=== PATIENT | male | born 1945 | race Caucasian/White ===

== ENCOUNTER 2018-04-27 09:32 | Outpatient (CLI) | payer MEDICARE, BC ==
--- NOTE | 2018-04-27 20:17 | ULT ---
RIGHT UPPER QUADRANT ULTRASOUND 04/27/18 Ultrasonography of the right upper quadrant was performed for evaluation of pain. The liver was 15.0 cm in oblique sagittal length which is upper normal. It is slightly echogenic, so I cannot completely exclude the possibility of fatty infiltration. Internally, there was no dilated d uct or mass. The visible portions of the pancreas appear normal. The gallbladder contain no signs of signs or wall thickening. The common bile duct was borderline in caliber at 6 mm. The right kidney ap pears normal and is 10.5 cm in length. IMPRESSION: No definite acute findings. See comments above. POS: HOME
== END 2018-04-27 09:33 | disposition home or self-care (01) ==
LOC: BURULT 09:32
PROVIDERS: ATTEND Family Medicine
DX: R10.11 Right upper quadrant pain (principal)
CPT/HCPCS: 76705

== ENCOUNTER 2019-02-17 12:36 | Outpatient (CLI) | payer MEDICARE, BC ==
--- NOTE | 2019-02-17 16:56 | RAD ---
CHEST TWO VIEWS: 02/17/19 Comparison is made with the prior study of 05/21/18. The heart remains normal in size. There is no lobar infiltrate or effusion. At most there may be some minor prominence of the lung markings in general, but the finding is equivocal at best. The mediasti num showed no acute change. The trachea is midline. IMPRESSION: No acute thoracic findings. If clinical concerns persist, a CT of the chest to show finer detail coul d be needed. POS: HOME
== END 2019-02-17 12:37 | disposition home or self-care (01) ==
LOC: BURRAD 12:36
PROVIDERS: ATTEND Nurse Practitioner Family
DX: J41.1 Mucopurulent chronic bronchitis (principal)
CPT/HCPCS: 71046

== ENCOUNTER 2019-12-11 12:17 | Outpatient (CLI) | payer MEDICARE, BC ==
--- NOTE | 2019-12-11 16:30 | RAD ---
LUMBAR SPINE THREE VIEWS: Date: 12-11-2019 FINDINGS: There is a transitional lumbar vertebrae at the lumbosacral junction. There is disc space narrowing at L4-5 and a little at L5-transitional vertebra. Mild spondylolisthesi s of is present at this level and there is severe facet arthritis posteriorly here. An MRI would be q uite useful in determining any neural impingement. No fractures were seen. It is difficult to assess the T11 vertebral body on the lateral view. Dense arteriosclerosis is present in the distal aorta. 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 POS: HOME
== END 2019-12-11 12:18 | disposition home or self-care (01) ==
LOC: BURRAD 12:17
PROVIDERS: ATTEND Family Medicine
DX: M54.5 Low back pain (principal); M47.817 Spondylosis without myelopathy or radiculopathy, lumbosacral region
CPT/HCPCS: 72100

== ENCOUNTER 2019-12-11 15:48 | Outpatient (CLI) | payer MEDICARE, BC ==
[2019-12-11 21:40] LABS: #Basophils 0.1 thou/uL (0.0-0.2); #Eosinphils 0.1 thou/uL (0.0-0.7); #Lymphocytes 1.9 thou/uL (1.20-3.40); #Monocytes 0.5 thou/uL (0.11-0.59); #Neutrophils 4.3 thou/uL (1.40-6.50); %Basophils 0.9 % (0.0-1.0); %Eosinophils 2.1 % (0.0-10.0); %Lymphocytes 27.4 % (21.0-51.0); %Monocytes 7.6 % (0.0-10.0); %Neutrophils 61.9 % (42.0-75.0); Hemoglobin 17.4 g/dL (14.0-18.0); Mean Corpuscular HGB CONC 34.9 g/dL (32.0-36.0); Mean Corpuscular Hemoglobin 34.7 pg (27.0-31.0); Mean Corpuscular Volume 99.3 fL (78.0-98.0); Mean Platelet Volume 7.1 fL (7.4-10.4); Platelet Count 220 thou/uL (130-400); RBC Distribution Width 12.4 % (11.5-14.5); Red Blood Cell (RBC) Count 5.03 mill/uL (4.70-6.10); White Blood Cell (WBC) Count 6.9 thou/uL (4.8-10.8)
[2019-12-11 21:57] LABS: ALT (SGPT) 48 U/L (8-55); AST (SGOT) 28 U/L (5-34); Albumin 4.8 g/dL (3.4-4.8); Alkaline Phosphatase 66 U/L (40-110); Anion Gap 16 mmol/L (10-20); BUN (Urea Nitrogen) 13 mg/dL (8.4-25.7); Bilirubin, Total 0.6 mg/dL (0.2-1.2); Calc. Creatinine Clearance 0 mL/min (70-130); Calcium 9.8 mg/dL (7.8-10.44); Carbon Dioxide 28 mmol/L (23-31); Cardiac Risk 3.6 (Less than 4.5); Chloride 100 mmol/L (98-107); Cholesterol 179 mg/dl (< 200 Desired); Estimated GFR-MDRD 66; Globulin 2.2 g/dL (2.4-3.5); Glucose 100 mg/dL (83-110); HDL Cholesterol 50 mg/dL (>60 Neg Risk); LDL Cholesterol, Calculated 114 mg/dL; Potassium 4.1 mmol/L (3.5-5.1); Sodium 140 mmol/L (136-145); Triglycerides 75 mg/dL (Less than 150)
[2019-12-11 22:17] LABS: PSA-Asymptomatic (SCREENING) 0.61 ng/mL (0-4.0); Thyroid Stimulating Hormone 1.2463 uIU/mL (0.35-4.94)
== END 2019-12-11 15:49 | disposition home or self-care (01) ==
LOC: HPCALD 15:48
PROVIDERS: ATTEND Family Medicine
DX: Z12.5 Encounter for screening for malignant neoplasm of prostate (principal); E78.5 Hyperlipidemia, unspecified; I10 Essential (primary) hypertension
CPT/HCPCS: 72100; 80053; 80061; 84443; 85025; G0103

== ENCOUNTER 2022-02-10 11:55 | Outpatient (CLI) | payer MEDICARE, BC | END 2022-02-10 11:56 | disposition home or self-care (01) | LOC: BURRAD 11:55 | PROVIDERS: ATTEND Family Medicine | DX: M54.50 Low back pain, unspecified (principal); M47.816 Spondylosis without myelopathy or radiculopathy, lumbar region; M47.817 Spondylosis without myelopathy or radiculopathy, lumbosacral region | CPT/HCPCS: 72110 ==

== ENCOUNTER 2022-04-06 11:15 | Outpatient (CLI) | payer MEDICARE, BC | END 2022-04-06 11:16 | disposition home or self-care (01) | LOC: BURRAD 11:15 | PROVIDERS: ATTEND Neurological Surgery | DX: M54.50 Low back pain, unspecified (principal); M47.816 Spondylosis without myelopathy or radiculopathy, lumbar region; M43.16 Spondylolisthesis, lumbar region | CPT/HCPCS: 72120 ==

== ENCOUNTER 2022-05-21 10:55 | Outpatient (CLI) | payer MEDICARE, BC | END 2022-05-21 10:56 | disposition home or self-care (01) | LOC: BURRAD 10:55 | PROVIDERS: ATTEND Neurological Surgery | DX: M47.12 Other spondylosis with myelopathy, cervical region (principal) | CPT/HCPCS: 72050 ==

== ENCOUNTER 2022-08-21 10:00 | Outpatient (CLI) | payer MEDICARE, BC | END 2022-08-21 10:01 | disposition home or self-care (01) | LOC: BURRAD 10:00 | PROVIDERS: ATTEND Neurological Surgery | DX: M48.02 Spinal stenosis, cervical region (principal); M47.812 Spondylosis without myelopathy or radiculopathy, cervical region; Z98.890 Other specified postprocedural states | CPT/HCPCS: 72040 ==

== ENCOUNTER 2022-10-23 11:16 | Outpatient (CLI) | payer MEDICARE, BC | END 2022-10-23 11:17 | disposition home or self-care (01) | LOC: BURRAD 11:16 | PROVIDERS: ATTEND Neurological Surgery | DX: M48.062 Spinal stenosis, lumbar region with neurogenic claudication (principal); M47.816 Spondylosis without myelopathy or radiculopathy, lumbar region; Z98.890 Other specified postprocedural states | CPT/HCPCS: 72100 ==

== ENCOUNTER 2023-02-05 12:23 | Emergency (ER) | payer MEDICARE, BC | END 2023-02-05 13:44 | disposition home or self-care (01) | LOC: BURERS 12:23 | DX: K64.5 Perianal venous thrombosis (principal); L02.91 Cutaneous abscess, unspecified; I10 Essential (primary) hypertension; Z87.891 Personal history of nicotine dependence | CPT/HCPCS: 99283 ==